=== PATIENT | female | born 1935 | race Caucasian/White ===

== ENCOUNTER → 2018-02-19 10:45 | Outpatient (CLI) | payer MEDICARE, SELFPAY ==
[2018-02-19 10:59] LABS: International Normalized Ratio 1.7; Prothrombin Time (Protime)PT. 20.4 SECONDS (11.7-14.9)
== END ==
PROVIDERS: Family Provider Family Medicine; PCP Family Medicine; Referring Provider Family Medicine; Visit Provider Family Medicine
DX: I48.91 Unspecified atrial fibrillation (principal)
CPT/HCPCS: 85610

== ENCOUNTER → 2019-04-20 06:20 | Outpatient (CLI) | payer MEDICARE, OTHER, SELFPAY ==
[2019-04-01 08:17] VITALS: BMI 24.4
--- NOTE | 2019-04-20 06:23 | ECHOD_ITS ---
Reason For Study: AFIB/FLUTTER Procedure This was a 2D Doppler, Color Flow transthoracic echocardiogram. Exam performed in department. Left Ventricle Normal LV size. Mild concentric left ventricular hypertrophy. Left ventricular systolic function is normal. The estimated ejection fraction is 60 %. Stage 1 diastolic dysfunction. No regional wall motion abnormalities noted. Right Ventricle Normal size and thickness. Normal systolic function. Mitral Valve Normal mitral valve. Tricuspid Valve Normal tricuspid valve. Mild (1+) tricuspid valve insufficiency. Pulmonary artery systolic pressure is 40 mmHg. Great Vessels Normal aortic root. The pulmonary artery is normal size. Normal inferior vena cava. Pericardium/Pleural No pericardial effusion. MMode/2D Measurements & Calculations LVIDd: 4.0 cm IVSd: 1.4 cm Ao root diam: 3.4 cm LVIDs: 2.4 cm LVPWd: 1.2 cm RVDd: 2.8 cm FS: 39.8 % LAV(MOD-bp): 62.4 ml LA dimension(2D): 3.9 cm LA A4 area: 17.7 cm2 LAV(MOD-bp) Indexed: 36.0 ml/m2 LAV(MOD-sp2): 57.2 ml LAV(MOD-sp4): 57.2 ml RA A4 area: 14.3 cm2 Time Measurements MV dec time: 0.15 sec Doppler Measurements & Calculations MV E max roland: 68.7 cm/sec Lat Peak E' Roland: 9.7 cm/sec Med Peak E' Roland: 6.7 cm/sec MV A max roland: 83.6 cm/sec E/E' lat: 7.1 E/E' med: 10.2 MV E/A: 0.82 Ao V2 max: 161.6 cm/sec LV V1 max: 94.8 cm/sec PA V2 max: 103.9 cm/sec Ao max P.5 mmHg LV V1 max P.6 mmHg PI end-d roland: 84.3 cm/sec TR max roland: 297.5 cm/sec TR max P.2 mmHg Interpretation Summary Normal LV size. Left ventricular systolic function is normal. Mild concentric left ventricular hypertrophy. The estimated ejection fraction is 60 %. Stage 1 diastolic dysfunction. Mild (1+) tricuspid valve insufficiency. Ordering Physician: Harpreet Hu Referring Physician: Koby Wilkes Performed By: Shanon Barrios, CHARITO, RVT
--- NOTE | 2019-04-20 11:17 | STRESSREP_ITS ---
Stress Test Report Pharmacologic myocardial perfusion stress test. 83-year-old lady with a history of atrial fibrillation. Medications: Coumadin, omeprazole, Cardizem, lisinopril. Stress protocol: Resting EKG demonstrates sinus rhythm with a rate of 62 bpm occasional premature ventricular complexes noted. 0.4 mg of regadenoson was infused per usual pro tocol followed up intravenous saline flush injection continuous EKG monitoring was performed. The maximum heart rate was 78 bpm which was 56% of maximum predicted heart rate the maximum workload was 1 metabolic equivalent. At rest nonspecific ST-T wave changes were noted with no meet the criteria for ischemia at peak infusion nonspecific ST-T wave changes were noted. The resting blood pressure was 144/78 final blood pressure was 132/38 mmHg. Myocardial perfusion protocol. 11.0 mCi of technetium 99m sestamibi was injected at rest. 0.4 mg of regadenoson was infused per usual protocol peak infusion 35.0 mCi of technetium 99m sestamibi was injected stress images were obtained stress and rest images were reconstructed and compared in the short axis vertical and horizontal long axis. Gated images were also obtained Perfusion SPECT analysis: Review of the stress images demonstrate normal uptake of tracer noted in all areas of the myocardium. The resting images similar demonstrate normal uptake of tracer noted in all areas of the myocardium no areas of reversibility or no suggest ischemia no previous infarct is noted. Gated SPECT analysis: The gated ejection fraction is noted to be 76%. Conclusion: Normal pharmacologic myocardial perfusion stress test. Preserved ejection fraction.
== END ==
PROVIDERS: Family Provider Family Medicine; PCP Family Medicine; Referring Provider Internal Medicine Cardiovascular Disease; Visit Provider Internal Medicine Cardiovascular Disease
DX: I25.10 Atherosclerotic heart disease of native coronary artery without angina pectoris (principal); I48.0 Paroxysmal atrial fibrillation
CPT/HCPCS: 78452; 93017; 93306; A9500; A4216; J2785

== ENCOUNTER → 2020-01-19 09:55 | Outpatient (CLI) | payer MEDICARE, SELFPAY ==
[2019-12-01 09:56] VITALS: BMI 23.8
[2020-01-19 10:12] LABS: International Normalized Ratio 1.1
== END ==
PROVIDERS: PCP Family Medicine; Referring Provider Physician Assistant; Visit Provider Physician Assistant
DX: I48.20 Chronic atrial fibrillation, unspecified (principal)
CPT/HCPCS: 85610

== ENCOUNTER → 2020-03-16 10:22 | Outpatient (CLI) | payer MEDICARE, SELFPAY ==
[2020-03-02 13:45] VITALS: BMI 22.4
[2020-03-16 11:45] LABS: Anion Gap 8 (5-15); BUN 18 mg/dL (7-18); BUN/Creat Ratio 19.1 RATIO (10-20); Calcium,Total 9.8 mg/dL (8.5-10.1); Chloride 91 mmol/L (98-107); Creatinine, Serum 0.94 mg/dL (0.55-1.02); EST Glomerular Filtration Rate 60 mL/min (>60); Est Glom Filt Rate - Afr Amer 73 mL/min (>60); Glucose 80 mg/dL (74-106); Potassium 3.2 mmol/L (3.5-5.1); Sodium Level 129 mmol/L (136-145)
== END ==
PROVIDERS: PCP Family Medicine; Referring Provider Physician Assistant Medical; Visit Provider Physician Assistant Medical
DX: I10 Essential (primary) hypertension (principal)
CPT/HCPCS: 36415; 80048

== ENCOUNTER 2021-05-12 14:08 | Outpatient (CLI) | payer MEDICARE, SELFPAY ==
[2021-05-12 14:36] LABS: Lactic Acid 1.1 mmol/L (0.4-1.9)
== END 2021-05-12 23:59 | disposition short-term general hospital (02) ==
PROVIDERS: PCP Family Medicine; Visit Provider Nurse Practitioner Primary Care
DX: R10.30 Lower abdominal pain, unspecified (principal)
CPT/HCPCS: 83605

== ENCOUNTER 2021-06-06 18:59 | Emergency (ER) | payer MEDICARE, SELFPAY ==
--- NOTE | 2021-06-06 19:48 | EX.ED.DYSGE1 ---
HPI History of Present Illness Chief Complaint: Abn Labs Detail of Chief Complaint: Low potassium and generalized weakness Informant: patient Narrative Narrative: Patient presents to the emergency department at the request of her surgeon Dr. Cadet who saw her earlier today and performed some blood work and noted that she had a low potassium. Patient does not have a lot in the way complaints other than some fatigue which she states is been a long day. Patient states that she had surgery about May 13 on her small bowel and then had to have a stent placed in her left arm subsequently. Today patient was having amanda removed from her abdomen and was having her hemorrhoids evaluated when her surgeon performed some blood work. Patient does use albuterol daily at home. She is not had low potassium in the past. Prior similar symptoms: No PFSH PFSH Medical History (Updated 06/06/21 @ 22:[address] Mariano Salguero, DO) Chronic obstructive lung disease Essential (primary) hypertension History of non-ST elevation myocardial infarction (NSTEMI) (04/2011) Hyperlipemia Paroxysmal atrial fibrillation Septic shock due to urinary tract infection (04/2011) Home Medications fluticasone propion-salmeterol 1 puff INHALATION BID 09/25/13 [History Last Taken Unknown] meclizine 25 mg PO 4X/DAY PRN PRN 09/25/13 [History Last Taken 09/30/13 09:00] albuterol sulfate 90 mcg/actuation aerosol inhaler 1 puff INHALATION DAILY 04/01/19 [History Last Taken Unknown] fosinopril 40 mg tablet 40 mg PO DAILY #90 tab 04/01/19 [Rx Last Taken Unknown] tiotropium bromide 18 mcg capsule with inhalation device 1 cap INHALATION DAILY 04/01/19 [History Last Taken Unknown] sertraline 100 mg tablet 50 mg PO DAILY tab 12/01/19 [History Last Taken Unknown] gabapentin 400 mg capsule 400 mg PO BID cap 06/02/20 [History Last Taken Unknown] lovastatin 20 mg tablet 20 mg PO QHS tab 06/02/20 [History Last Taken Unknown] diltiazem HCl 180 mg capsule,extended release 24 hr 180 mg PO DAILY 12/20/20 [History Last Taken Unknown] apixaban [Eliquis] 2.5 mg PO BID 06/06/21 [History Last Taken Unknown] Allergy/AdvReac Type Severity Reaction Status Date / Time Latex, Natural Rubber Allergy mental Verified 06/06/21 19:00 status changes morphine Allergy Itching Verified 06/06/21 19:00 acetaminophen [From Percocet] AdvReac itching Verified 06/06/21 19:00 adhesive tape AdvReac Rash Verified 06/06/21 19:00 oxycodone [From Percocet] AdvReac itching Verified 06/06/21 19:00 tylenol #3 Allergy Hives Uncoded 06/06/21 19:00 Family History (Reviewed 12/20/20 @ 08:29 by Sybil Woodard KILN TRANSFER OPERATOR, KILN TRANSFER OPERATOR-C) Mother Hypertension Father Cancer Sister Cancer CVA (cerebral vascular accident) Hypertension Brother Heart disease CVA (cerebral vascular accident) Surgical History History of bladder suspension procedure History of cardioversion History of cholecystectomy History of herniorrhaphy History of hysterectomy Social History (Reviewed 12/20/20 @ 08:29 by Sybil Woodard KILN TRANSFER OPERATOR, KILN TRANSFER OPERATOR-C) Smoking Status: Former smoker ROS ROS ED Constitutional Constitutional ED: Reports systems reviewed and no addt'l complaints, except as documented; Denies body ache(s), change in weight or chills Eyes Eyes: Denies acute decrease in peripheral vision, change in vision, double vision or loss of vision ENT ENT ED: Reports none; Denies ear pain, lip swelling, loss taste/smell, neck pain, otalgia or sore throat Cardiovascular Cardiovascular: Reports none; Denies abdominal pain, chest pain with activity, leg edema, lightheadedness, palpitations, rapid heart rate or syncope Respiratory/Chest Respiratory/Chest: Reports none; Denies change in mental status, dry cough, dyspnea, hemoptysis, shortness of breath at rest or shortness of breath with exertion Gastrointestinal Gastrointestinal: Reports none; Denies abdominal pain, change in stool character, diarrhea, hematemesis, hematochezia, melena, rectal bleeding or vomiting Genitourinary Genitourinary ED: Reports none; Denies abdominal discomfort, anuria, dysuria, genital pain or polyuria Musculoskeletal Musculoskeletal: Reports none; Denies arthralgias, back pain, difficulty walking, extremity pain, muscle weakness or myalgias Integumentary Reports none; Denies abscess or rash Neurologic Neurologic: Reports none and weakness; Denies abnormal gait, confusion, focal weakness, frequent falls, headache(s), loss of vision, numbness, paresthesias, radicular pain or vertigo Psychiatric Psychiatric: Reports systems reviewed and no addt'l complaints, except as documented and none; Denies behavioral changes, confusion, difficulty concentrating, hallucinations, suicidal ideation, tactile hallucinations or visual hallucinations Endocrine Endocrinology: Denies none, cold intolerance, excessive sweating, fatigue or heat intolerance Hematologic/Lymphatic Hematologic/Lymphatic: Reports none; Denies anemia, easy bleeding or easy bruising Allergic/Immunologic Allergic/Immunologic ED: Denies as per HPI, none, lip swelling, mouth swelling, throat swelling, tongue swelling or hives EXAM Physical Exam Const Vital Signs: 06/06/21 20:25 06/06/21 20:32 06/06/21 21:00 Temperature 98 F Temperature Source Oral Pulse Rate 67 65 Respiratory Rate 20 H 17 Respiratory Effort Normal Non-Labored Respiratory Pattern Normal Blood Pressure 117/49 L 118/52 L Blood Pressure Mean 71 74 Pulse Ox 94 94 Oxygen Delivery Method Room Air Room Air 06/06/21 22:11 Temperature 97.9 F Temperature Source Pulse Rate 70 Respiratory Rate 17 Respiratory Effort Respiratory Pattern Blood Pressure 126/40 H Blood Pressure Mean 68 Pulse Ox 96 Oxygen Delivery Method Positive well nourished and well developed General Appearance ED: well developed and NAD HEENT Reports TM's clear and moist mucous membranes normocephalic and atraumatic; Negative for trauma or tenderness Tympanic Membrane ED: Yes TM's clear Eyes PERRL and EOMs intact bilaterally General Eye ED: Negative for pale conjunctiva or scleral icterus Neck no lymphadenopathy, supple and no JVD General: Negative for tenderness Chest Wall inspection of chest normal and palpation of chest normal Chest: Negative for tenderness Resp normal respiratory effort and clear to auscultation bilaterally Effort and Inspection: Negative for respiratory distress or pain with movement Auscultation: Negative for rhonchi, wheezes or diminished lung sounds Cardio regular rate, regular rhythm, S1 normal heart sound, S2 normal heart sound and no murmurs Peripheral Pulses: pulses 2+ throughout GI normal to inspection, nondistended, normoactive bowel sounds, soft to palpation, non-tender, non-distended and no masses Back/Spine no CVA tenderness and no thoracic nor lumbar tenderness Extremity normal to inspection General Extremety ED: Negative for edema General Extremity: Negative for edema Neuro oriented x3, CN's II-XII intact bilaterally, no sensory deficits noted and gait normal Sensorium / Orientation: awake, alert, oriented to person, oriented to place and oriented to time Motor Exam: strength 5/5 throughout and strength abnormal Psych mental status grossly normal Skin no rashes or lesions noted and no wounds MDM MDM MDM Narrative Medical decision making narrative: IV line established on arrival. Patient was noted to have a low potassium of 2.1 and a magnesium of 1.4. Patient was ordered IV potassium as well as IV magnesium. I discussed case with hospitalist evaluate for admission and hospitalist asked that I speak with patient's surgeon of record as she had her surgery at [facility]. The surgeon felt that patient could be kept at [facility] and managed medically as he did not feel there was anything surgical otherwise the needed to have intervention however if hospitalist was uncomfortable keeping the patient here that he would accept transfer to [facility]. Hospitalist did not feel comfortable keeping patient here and asked me to transfer patient to [facility]. Lab Data Attestation: I reviewed the patient's lab results. Labs: Laboratory Results - last 24 hr 06/06/21 06/06/21 20:00 20:00 WBC 8.9 RBC 3.10 L Hgb 8.7 L Hct 27.0 L MCV 87.1 MCH 28.1 MCHC 32.2 RDW Std Deviation 49.9 H RDW Coeff of Luis A 15.9 H Plt Count 306 MPV 9.4 Immature Gran % (Auto) 0.600 Neut % (Auto) 66.9 Lymph % (Auto) 23.3 Rolette % (Auto) 8.0 Eos % (Auto) 0.7 Baso % (Auto) 0.5 Absolute Neuts (auto) 6.0 Absolute Lymphs (auto) 2.07 Nucleated RBC % 0 Sodium 139 Potassium 2.1 L* Chloride 107 Carbon Dioxide 24.0 Anion Gap 8 BUN 10 Creatinine 0.86 Estim Creat Clear Calc 43.82 Est GFR (MDRD) Af Amer 81 Est GFR (MDRD) Non-Af 67 BUN/Creatinine Ratio 11.6 Glucose 92 Calcium 8.2 L Magnesium 1.4 L Discharge Plan Triage Chief Complaint: Abn Labs ED Provider: Mariano Salguero Dx/Rx/DC Orders Clinical Impression: Acute hypokalemia, Hypomagnesemia, Weakness, Diarrhea Prescriptions: No Action fosinopril 40 mg tablet 40 mg PO DAILY Qty: 90 RF: 3 Spiriva with HandiHaler 18 mcg capsule, w/inhalation device 1 cap INHALATION DAILY RF: 0 albuterol sulfate [ProAir HFA] 90 mcg/actuation HFA aerosol inhaler 1 puff INHALATION DAILY RF: 0 sertraline 100 mg tablet 50 mg PO DAILY RF: 0 gabapentin 400 mg capsule 400 mg PO BID RF: 0 lovastatin 20 mg tablet 20 mg PO QHS RF: 0 diltiazem HCl 180 mg capsule,extended release 24hr 180 mg PO DAILY RF: 0 meclizine 25 MG tablet 25 mg PO 4X/DAY PRN PRN (Reason: Dizziness) RF: 0 fluticasone propion-salmeterol 1 PUFF inhaler 1 puff inhalation BID RF: 0 Eliquis 2.5 mg tablet 2.5 mg PO BID RF: 0 Primary Care Provider: Ramez Wilson Referrals: Ramez Wilson PA [Primary Care Provider] - Disposition Disposition: Transfer to Another Type [facility]
[2021-06-06 20:15] LABS: Absolute Lymphocyte Count 2.07 X10^3/uL (0.83-4.51); Basophil# 0.04 X10^3/uL; Basophil% 0.5 % (0-1); Eosinophil# 0.06 X10^3/uL; Eosinophils% 0.7 % (0-5); Hemoglobin 8.7 g/dL (12.0-15.0); Lymphocyte # 2.07 X10^3/ul (0.83-4.51); Lymphocyte % 23.3 % (19-41); Mean Corp Hgb Conc 32.2 g/dL (32-36); Mean Corpuscular Hgb 28.1 pg (27.0-32.0); Mean Corpuscular Volume 87.1 fL (81-99); Mean Platelet Vol. 9.4 fl (6.2-12.0); Monocyte# 0.71 X10^3/uL; NRBC Flagged by Analyzer 0 % (0-5); Neutrophil # 5.95 X10^3/uL (2.7-7.7); Neutrophil % 66.9 % (47-70); Platelet Count 306 K/mm3 (150-450); RBC Distribution Width CV 15.9 % (11.6-14.6); RBC Distribution Width SD 49.9 fl (35.1-43.9); White Blood Count 8.9 K/mm3 (4.4-11.0)
[2021-06-06 20:25] VITALS: BP 117/49; PULSE 67; RESP 20; TEMP 36.6; O2SAT 94; BMI 21.8
[2021-06-06 20:38] LABS: Anion Gap 8 (5-15); BUN 10 mg/dL (7-18); BUN/Creat Ratio 11.6 RATIO (10-20); Calcium,Total 8.2 mg/dL (8.5-10.1); Chloride 107 mmol/L (98-107); Creatinine, Serum 0.86 mg/dL (0.55-1.02); EST Glomerular Filtration Rate 67 mL/min (>60); Est Glom Filt Rate - Afr Amer 81 mL/min (>60); Estimated Creatinine Clearance 43.82 ml/min; Glucose 92 mg/dL (74-106); Magnesium 1.4 mg/dL (1.6-2.6); Potassium 2.1 mmol/L (3.5-5.1); Sodium Level 139 mmol/L (136-145)
--- NOTE | 2021-06-06 20:44 | EKG12_ITS ---
Test Reason : ABD LABS Blood Pressure : / mmHG Vent. Rate : 071 BPM Atrial Rate : 071 BPM P-R Int : 118 ms QRS Dur : 100 ms QT Int : 422 ms P-R-T Axes : 058 -33 119 degrees QTc Int : 458 ms Sinus rhythm with occasional Premature ventricular complexes and Premature atrial complexes Left axis deviation Septal infarct , age undetermined ST & T wave abnormality, consider lateral ischemia Abnormal ECG Confirmed by MADDY STONE, VADIM ([id number]), primer expeditor and drier ALEXANDRU MCDANIEL ([id number]) on 06/08/2021 11:02:05 AM Referred By: NISA Confirmed By:GEGE CASTAÑEDA MD
[2021-06-06 21:00] VITALS: BP 118/52; PULSE 65; RESP 17; O2SAT 94
[2021-06-06] MEDS: Potassium Chloride 10mEq/100mL 10 MEQ/100 ML IV.SOLN. 100 MEQ IV BOLUS ×3 (21:15→23:09)
--- NOTE | 2021-06-06 21:48 | ED.RN ---
[facility] calls accepting patient to [place], will call back with room number.
[2021-06-06 22:11] VITALS: BP 126/40; PULSE 70; RESP 17; TEMP 36.6; O2SAT 96
== END 2021-06-06 23:34 | disposition other institution (70) ==
PROVIDERS: Emergency Provider Emergency Medicine; PCP Physician Assistant; Visit Provider Emergency Medicine
DX: E87.6 Hypokalemia (principal); J44.9 Chronic obstructive pulmonary disease, unspecified; I48.0 Paroxysmal atrial fibrillation; E83.42 Hypomagnesemia; R53.1 Weakness; R19.7 Diarrhea, unspecified; E78.5 Hyperlipidemia, unspecified; K64.9 Unspecified hemorrhoids; I10 Essential (primary) hypertension; I25.2 Old myocardial infarction; Z87.891 Personal history of nicotine dependence; Z79.899 Other long term (current) drug therapy
CPT/HCPCS: 80048; 83735; 85025; 87426; 93005; 96365; 96366; 96367; 99285; J7050

== ENCOUNTER 2022-03-04 17:57 | Emergency (ER) | payer MEDICARE, SELFPAY ==
[2022-03-04 17:59] VITALS: BP 195/70; PULSE 80; RESP 14; TEMP 37.2; O2SAT 100; BMI 20.2
[2022-03-04 18:19] VITALS: BP 194/102; PULSE 82; RESP 18; O2SAT 93
--- NOTE | 2022-03-04 18:20 | CT_ITS ---
STUDY: CT BRAIN WITHOUT CONTRAST REASON FOR EXAM: Female, 86 years old. HEADACHE trauma TECHNIQUE: Transaxial CT imaging of the brain was performed without administration of intravenous contrast material. Individualized dose optimization techniques were used for this CT. COMPARISON: None FINDINGS: Normal calvarium. Normal soft tissues. 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 Normal size ventricles and extra-axial spaces for the patient''s age. There are areas of decreased attenuation within the white matter tracts of the supratentorial brain, consistent with microvascular disease changes. Normal basal ganglia and thalami. Normal brainstem. Normal cerebellum. There is no intracranial hemorrhage. There are no findings of an acute ischemic infarction. There are calcifications noted in the distal vertebral arteries. There are calcifications noted in the cavernous carotid arteries. This is consistent for atherosclerotic disease. Normal visualized paranasal sinuses. ASPECTS 10 CT/Brain/Head without Contrast IMPRESSION: There are no acute intracranial findings. Electronically Signed: Angel Lemus MD at 18:54 EDT ,
[2022-03-04 18:24] VITALS: O2SAT 92
--- NOTE | 2022-03-04 18:40 | RAD_ITS ---
EXAM: XR LEFT RIBS AND AP CHEST, 3 OR MORE VIEWS CLINICAL INDICATION: trauma TECHNIQUE: Frontal and oblique views of the left ribs and frontal view of the chest. This report was created using [employer] report generation technology. COMPARISON: None. FINDINGS: LUNGS AND PLEURAL SPACES: Unremarkable. No consolidation or edema. No pneumothorax. No effusion. HEART: Unremarkable. Cardiac silhouette not enlarged. MEDIASTINUM: Central airways and mediastinal contour are unremarkable. BONES/JOINTS: Unremarkable. No evidence of displaced rib fractures. RAD/Ribs Uni Min 3V w/PA Chest IMPRESSION: Negative chest and left ribs series. Electronically Signed: Angel Lemus MD at 19:10 EDT ,
--- NOTE | 2022-03-04 19:11 | EDS_ITS ---
HPI HPI - Fall History of Present Illness Chief Complaint: Fall Narrative Narrative: Patient fell in the middle of the night onto her left ribs she thinks she hit her head. She did not lose consciousness, she tells me she was walking at night in the dark and tripped. Her pain is in the left ribs she does not have a headache she does not have any neck pain no extremity injury she has chronic right hip pain and lumbar pain but this has not changed. PFSH [facility] Medical History Chronic obstructive lung disease Essential (primary) hypertension History of non-ST elevation myocardial infarction (NSTEMI) (04/2011) Hyperlipemia Paroxysmal atrial fibrillation Septic shock due to urinary tract infection (04/2011) Short gut syndrome Home Medications albuterol sulfate 90 mcg/actuation aerosol inhaler (ProAir HFA) 1 puff inhalation DAILY 04/01/19 [History Last Taken Unknown] gabapentin 400 mg capsule 400 mg PO BID 06/02/20 [History Last Taken Unknown] apixaban 2.5 mg tablet (Eliquis) 2.5 mg PO BID #180 tabs 10/19/21 [Rx Last Taken Unknown] diltiazem HCl 180 mg capsule,extended release 24 hr 180 mg PO DAILY #90 caps 10/19/21 [Rx Last Taken Unknown] fluticasone 100 mcg-salmeterol 50 mcg/dose blistr powdr for inhalation 1 ea inhalation BID 10/19/21 [History Last Taken Unknown] fosinopril 40 mg tablet 40 mg PO DAILY #90 tabs 10/19/21 [Rx Last Taken Unknown] loperamide 2 mg capsule 2 mg PO DAILY PRN 10/19/21 [History Last Taken Unknown] lovastatin 20 mg tablet 20 mg PO QHS #90 tabs 10/19/21 [Rx Last Taken Unknown] mirtazapine 15 mg tablet 15 mg PO DAILY 10/19/21 [History Last Taken Unknown] sertraline 50 mg tablet 50 mg PO DAILY 10/19/21 [History Last Taken Unknown] umeclidinium 62.5 mcg/actuation blister powder for inhalation (Incruse Ellipta) 1 inh inhalation DAILY 10/19/21 [History Last Taken Unknown] Allergy/AdvReac Type Severity Reaction Status Date / Time codeine Allergy Hives Verified 03/04/22 18:26 [From Tylenol-Codeine #3] Latex, Natural Rubber Allergy mental Verified 03/04/22 18:26 status changes morphine Allergy Itching Verified 03/04/22 18:26 acetaminophen [From Percocet] AdvReac itching Verified 03/04/22 18:26 adhesive tape AdvReac Rash Verified 03/04/22 18:26 oxycodone [From Percocet] AdvReac itching Verified 03/04/22 18:26 Family History Mother Hypertension Father Cancer Sister Cancer CVA (cerebral vascular accident) Hypertension Brother Heart disease CVA (cerebral vascular accident) Surgical History History of bladder suspension procedure History of cardioversion History of cholecystectomy History of colon resection History of herniorrhaphy History of hysterectomy Social History Smoking Status: Former smoker ROS ROS ED ROS Narrative Social: Lives with Medications: Reviewed, includes apixaban 2.5 mg twice daily Past medical history: Reviewed, includes A. fib, hypertension, COPD, hyperlipidemia Review of systems General: Patient has no head injury or loss of consciousness HEENT: No facial injury Neck: No neck pain Cardiovascular: Patient denies any chest pain or palpitations Chest wall: Left chest wall pain Respiratory: There is no shortness of breath GI: There is no nausea vomiting diarrhea or abdominal pain, no abdominal wall contusions Skin: No lacerations or abrasions Neurological: Patient has no memory loss, confusion, or any focal weakness Psychiatric: No recent behavioral changes Back: No back pain, no problems with ambulation Musculoskeletal: No extremity injury All other systems are reviewed and normal EXAM Physical Exam Narrative Exam Narrative: Physical exam Vitals reviewed General: Patient appears somewhat uncomfortable as I walk in. HEENT: No facial injury Head: No head injury Eyes: Extraocular movements intact Neck: No C-spine tenderness with full range of motion Heart: Regular rate normal pulses Chest wall: Left chest wall pain in the ribs right below her left breast. No obvious contusions or hematomas in that region. Lungs clear lungs bilaterally with normal inspiration and expiration without tachypnea GI: Abdomen is soft and nontender there is no mass no guarding no abdominal wall contusion : Stable pelvis Musculoskeletal: Moves all extremities without any signs of trauma Skin: No abrasions or laceration Neurological: Patient is alert and oriented with no focal deficits Const Vital Signs: 03/04/22 17:59 03/04/22 18:19 03/04/22 18:22 Temperature 98.9 F Temperature Source Temporal Pulse Rate 80 82 Respiratory Rate 14 18 Respiratory Effort Short of Breath Respiratory Pattern Normal Blood Pressure 195/70 H 194/102 H Blood Pressure Mean 111 132 Pulse Ox 100 93 Oxygen Delivery Method Room Air Room Air 03/04/22 18:24 Temperature Temperature Source Pulse Rate Respiratory Rate Respiratory Effort Short of Breath Respiratory Pattern Normal Blood Pressure Blood Pressure Mean Pulse Ox 92 Oxygen Delivery Method Room Air MDM MDM MDM Narrative Medical decision making narrative: Patient has a normal work-up, she is on tramadol at home she does not wish to have any other medications. I will discharge her home with reassurance. She tells me she has an incentive spirometer which I told her to use every day every 2-3 hours while awake. Radiography Diagnostic Testing: Clinical Impression(s) from Imaging Studies Brain CT 03/04/22 18:20 IMPRESSION: There are no acute intracranial findings. Electronically Signed: Angel Lemus MD at 18:54 EDT , Ribs w/Chest X-Ray 03/04/22 18:40 IMPRESSION: Negative chest and left ribs series. Electronically Signed: Angel Lemus MD at 19:10 EDT , Left rib x-rays read by me and radiologist is negative Discharge Plan Triage Chief Complaint: Fall Other Complaint: Chest Other ED Provider: Jeyson Flores Dx/Rx/DC Orders Clinical Impression: Fall, Chest wall contusion, Head injury Instructions: ED Chest Wall Contusion, ED Bruise, Rib Prescriptions: No Action albuterol sulfate [ProAir HFA] 90 mcg/actuation HFA aerosol inhaler 1 puff INHALATION DAILY gabapentin 400 mg capsule 400 mg PO BID Label Comments: TAKE 1 CAPSULE BY MOUTH TWICE A DAY sertraline 50 mg tablet 50 mg PO DAILY Label Comments: TAKE 1 & 1/2 (ONE & ONE-HALF) TABLETS BY MOUTH ONCE DAILY mirtazapine 15 mg tablet 15 mg PO DAILY loperamide 2 mg capsule 2 mg PO DAILY PRN Incruse Ellipta 62.5 mcg/actuation blister with device 1 inh inhalation DAILY Eliquis 2.5 mg tablet 2.5 mg PO BID Qty: 180 3RF diltiazem HCl 180 mg capsule,extended release 24hr 180 mg PO DAILY Qty: 90 3RF fosinopril 40 mg tablet 40 mg PO DAILY Qty: 90 3RF lovastatin 20 mg tablet 20 mg PO QHS Qty: 90 3RF fluticasone propion-salmeterol 100-50 mcg/dose blister with device 1 ea inhalation BID Primary Care Provider: Ramez Wilson Referrals: Ramez Wilson PA [Primary Care Provider] - 2 Days Disposition Disposition: Home, Self Care
== END 2022-03-04 19:31 | disposition home or self-care (01) ==
PROVIDERS: Emergency Provider Emergency Medicine; PCP Physician Assistant; Visit Provider Emergency Medicine
DX: S20.20XA Contusion of thorax, unspecified, initial encounter (principal); S09.90XA Unspecified injury of head, initial encounter; I25.2 Old myocardial infarction; Z87.891 Personal history of nicotine dependence; W19.XXXA Unspecified fall, initial encounter
CPT/HCPCS: 70450; 71101; 99283

== ENCOUNTER → 2023-03-05 | Outpatient (CLI) | payer MEDICARE, SELFPAY ==
--- NOTE | 2023-03-05 14:56 | ECHOD_ITS ---
Reason For Study: PAF Procedure This was a 2D Doppler, Color Flow transthoracic echocardiogram. Exam performed in department. Left Ventricle Normal LV size. Left ventricular systolic function is normal. The estimated ejection fraction is 60 %. Stage 1 diastolic dysfunction. No regional wall motion abnormalities noted. Right Ventricle Normal RV size. Normal systolic function. Atria The left atrium is mildly enlarged. Normal right atrium. Mitral Valve Normal mitral valve. Mild (1+) eccentric mitral valve insufficiency. Tricuspid Valve Normal tricuspid valve. Mild (1+) tricuspid valve insufficiency. Pulmonary artery systolic pressure is 49 mmHg. Aortic Valve Trisinus/trileaflet aortic valve. Mild focal aortic valve calcification. Pulmonic Valve Normal pulmonic valve. Great Vessels Normal aortic root. The pulmonary artery is normal size. Inferior vena cava collapse with respiration. Pericardium/Pleural No pericardial effusion. MMode/2D Measurements & Calculations LVIDd: 4.9 cm IVSd: 1.1 cm Ao root diam: 3.5 cm LVIDs: 3.3 cm LVPWd: 0.67 cm LA dimension: 4.3 cm RVDd: 4.0 cm FS: 33.2 % LAV(MOD-bp): 80.0 ml LVAd ap4: 23.2 cm2 SV(MOD-sp4): 42.1 ml LAV(MOD-bp) Indexed: 54.6 ml/m2 LVLd ap4: 6.5 cm LAV(MOD-sp2): 73.7 ml EDV(MOD-sp4): 68.4 ml LAV(MOD-sp4): 87.1 ml EDV(sp4-el): 70.0 ml LVAs ap4: 12.4 cm2 LVLs ap4: 5.2 cm ESV(MOD-sp4): 26.3 ml ESV(sp4-el): 25.4 ml EF(MOD-sp4): 61.6 % EF(sp4-el): 63.6 % SV(sp4-el): 44.5 ml LA A4 area: 24.7 cm2 RA A4 area: 17.0 cm2 TAPSE: 2.1 cm Time Measurements MV dec time: 0.25 sec Doppler Measurements & Calculations MV E max roland: 59.0 cm/sec Lat Peak E' Roland: 9.9 cm/sec Med Peak E' Roland: 7.8 cm/sec MV A max roland: 75.2 cm/sec E/E' lat: 5.9 E/E' med: 7.6 MV E/A: 0.78 MV V2 max: 97.6 cm/sec MV P1/2t max roland: 75.8 cm/sec Ao V2 max: 177.0 cm/sec MV max P.8 mmHg MV P1/2t: 92.2 msec Ao max P.5 mmHg MV V2 mean: 45.3 cm/sec MV dec slope: 240.6 cm/sec2 Ao V2 mean: 117.6 cm/sec MV mean P.99 mmHg Ao mean P.4 mmHg MV V2 VTI: 27.9 cm MVA(P1/2t): 2.4 cm2 Ao V2 VTI: 43.0 cm AV (velocity ratio): 0.54 LV V1 max: 86.8 cm/sec MR max roland: 518.3 cm/sec PA V2 max: 85.6 cm/sec LV V1 max P.0 mmHg MR max P.4 mmHg LV V1 mean P.7 mmHg LV V1 mean: 61.1 cm/sec LV V1 VTI: 23.2 cm TR max roland: 335.4 cm/sec TR max P.0 mmHg ECHO/Echo Complete Interpretation Summary Normal LV size. Left ventricular systolic function is normal. The estimated ejection fraction is 60 %. Stage 1 diastolic dysfunction. Mild (1+) eccentric mitral valve insufficiency. Pulmonary artery systolic pressure is 49 mmHg. Ordering Physician: Harpreet Hu Referring Physician: Harpreet Hu Performed By: Messi Dowell RCS
== END | disposition home or self-care (01) ==
LOC: CVS 14:50
PROVIDERS: PCP Physician Assistant; Referring Provider Internal Medicine Cardiovascular Disease; Visit Provider Internal Medicine Cardiovascular Disease
DX: I48.0 Paroxysmal atrial fibrillation (principal)
CPT/HCPCS: 93306